=== PATIENT | male | born 1975 | race Two or more races ===

== ENCOUNTER 2018-09-26 19:53 | Emergency (ER) | payer SELFPAY ==
[~2018-09-26] VITALS: Ht 180.3 cm; Wt 113.4 kg
[2018-09-26 20:27] VITALS: BP 177/113
--- NOTE | 2018-09-26 20:27 | NUR ---
ED Nurse Note: Chest pain, palipitations, SOB, and cough since yesterday. AO4. NAD. HR 114. EKG completed. IV access established. Blood drawn and sent down to lab.
[2018-09-26 20:41] LABS: BASOPHILS % (AUTO) 1.2 % (0.0-2.0); EOSINOPHILS % (AUTO) 3.4 % (0.0-3.0); HEMATOCRIT 43.3 % (42.0-52.0); HEMOGLOBIN 13.8 G/DL (14.2-18.0); LYMPHOCYTES % (AUTO) 24.4 % (20.0-45.0); MEAN CORPUSCULAR VOLUME 92 FL (80-99); MONOCYTES % (AUTO) 4.9 % (1.0-10.0); NEUTROPHILS % (AUTO) 66.1 % (45.0-75.0); PLATELET COUNT 314 K/UL (150-450); RED BLOOD COUNT 4.72 M/UL (4.70-6.10); WHITE BLOOD COUNT 10.8 K/UL (4.8-10.8)
[2018-09-26 20:54] LABS: ANION GAP 7 mmol/L (5-15); BLOOD UREA NITROGEN 21 mg/dL (7-18); CALCIUM 9.5 MG/DL (8.5-10.1); CARBON DIOXIDE 29 MMOL/L (21-32); CHLORIDE 102 MMOL/L (98-107); CREATININE 1.1 MG/DL (0.55-1.30); POTASSIUM 4.6 MMOL/L (3.5-5.1); SODIUM 138 MMOL/L (136-145)
[2018-09-26 21:07] LABS: ALANINE AMINOTRANSFERASE 49 U/L (12-78); ALBUMIN 3.5 G/DL (3.4-5.0); ALBUMIN/GLOBULIN RATIO 0.8 (1.0-2.7); ALKALINE PHOSPHATASE 103 U/L (46-116); ASPARTATE AMINO TRANSFERASE 28 U/L (15-37); BILIRUBIN,TOTAL 0.4 MG/DL (0.2-1.0); CKMB 2.1 NG/ML (0.0-3.6); CREATINE KINASE 258 U/L (26-308)
--- NOTE | 2018-09-26 21:16 | Emergency Room Report ---
History of Present Illness General Chief Complaint: Chest Pain Source: Patient Present Illness HPI This patient complains of cough and shortness of breath for the past 5 days. The patient does continue to smoke tobacco. Patient states in the past he has had to get breathing treatments. He also has subjective fever and chills. He states that he has chest pain when he coughs. He states he also has bodyaches all over his body. He has no other complaints. Allergies: Coded Allergies: No Known Allergies (Unverified , 09/26/18) Patient History Past Medical History: see triage record Social History: Reports: smoking; Denies: alcohol use, drug use Reviewed Nursing Documentation: PMH: Agreed; PSxH: Agreed Nursing Documentation-PMH Past Medical History: No Stated History Review of Systems All Other Systems: negative except mentioned in HPI Physical Exam Vital Signs Date Time Temp Pulse Resp B/P (MAP) Pulse Ox O2 Delivery O2 Flow Rate FiO2 09/26/18 20:08 98.6 115 18 177/113 100 Room Air Sp02 EP Interpretation: reviewed, normal General Appearance: no apparent distress, alert, GCS 15, non-toxic Head: normocephalic, atraumatic Eyes: bilateral eye normal inspection, bilateral eye PERRL ENT: hearing grossly normal, normal pharynx, no angioedema, normal voice Neck: full range of motion, supple/symm/no masses Respiratory: chest non-tender, lungs clear, normal breath sounds, no respiratory distress, no retraction, no accessory muscle use, speaking full sentences Cardiovascular #1: regular rate, rhythm, no edema Gastrointestinal: normal bowel sounds, non tender, soft, non-distended, no guarding, no rebound Rectal: deferred Musculoskeletal: back normal, gait/station normal, normal range of motion, non- tender Neurologic: alert, oriented x3, responsive, motor strength/tone normal, sensory intact, speech normal Psychiatric: judgement/insight normal, memory normal, mood/affect normal, no suicidal/homicidal ideation Skin: normal color, no rash, warm/dry, well hydrated Medical Decision Making Diagnostic Impression: Primary Impression: Pneumonia ER Course This patient has a clinical presentation consistent with pneumonia and bronchospasm. Patient has a history of wheezing. The patient was given albuterol and Atrovent nebulizer treatments. The patient was also given prednisone orally. The patient had significant improvement in subjective shortness of breath. I recommended that this patient stay in the hospital for further monitoring. The patient significantly tachycardic. However, this is likely secondary to the albuterol treatment and anxiety. The patient's heart rate was in the 110s. The patient states that he will return if his symptoms worsen. I will also treat the patient with a course of antibiotics and an albuterol inhaler. The patient was given close return precautions and followup instructions. Laboratory Tests Test 09/26/18 20:15 White Blood Count 10.8 K/UL (4.8-10.8) Red Blood Count 4.72 M/UL (4.70-6.10) Hemoglobin 13.8 G/DL (14.2-18.0) L Hematocrit 43.3 % (42.0-52.0) Mean Corpuscular Volume 92 FL (80-99) Mean Corpuscular Hemoglobin 29.3 PG (27.0-31.0) Mean Corpuscular Hemoglobin Concent 31.9 G/DL (32.0-36.0) L Red Cell Distribution Width 14.0 % (11.6-14.8) Platelet Count 314 K/UL (150-450) Mean Platelet Volume 6.3 FL (6.5-10.1) L Neutrophils (%) (Auto) 66.1 % (45.0-75.0) Lymphocytes (%) (Auto) 24.4 % (20.0-45.0) Monocytes (%) (Auto) 4.9 % (1.0-10.0) Eosinophils (%) (Auto) 3.4 % (0.0-3.0) H Basophils (%) (Auto) 1.2 % (0.0-2.0) Sodium Level 138 MMOL/L (136-145) Potassium Level 4.6 MMOL/L (3.5-5.1) Chloride Level 102 MMOL/L (98-107) Carbon Dioxide Level 29 MMOL/L (21-32) Anion Gap 7 mmol/L (5-15) Blood Urea Nitrogen 21 mg/dL (7-18) H Creatinine 1.1 MG/DL (0.55-1.30) Estimate Glomerular Filtration Rate > 60 mL/min (>60) Glucose Level 93 MG/DL (74-106) Calcium Level 9.5 MG/DL (8.5-10.1) Total Bilirubin 0.4 MG/DL (0.2-1.0) Aspartate Amino Transferase (AST) 28 U/L (15-37) Alanine Aminotransferase (ALT) 49 U/L (12-78) Alkaline Phosphatase 103 U/L (46-116) Total Creatine Kinase 258 U/L (26-308) Creatine Kinase MB 2.1 NG/ML (0.0-3.6) Creatine Kinase MB Relative Index 0.8 Troponin I 0.011 ng/mL (0.000-0.056) Total Protein 7.9 G/DL (6.4-8.2) Albumin 3.5 G/DL (3.4-5.0) Globulin 4.4 g/dL Albumin/Globulin Ratio 0.8 (1.0-2.7) L EKG Diagnostic Results Rate: tachycardiac Rhythm: other - S.tachycardia ST Segments: no acute changes Rhythm Strip Diag. Results EP Interpretation: yes Rate: 110's Rhythm: no PVC's, no ectopy, other - S.tachycardia Chest X-Ray Diagnostic Results Chest X-Ray Diagnostic Results : Chest X-Ray Ordered: Yes # of Views/Limited/Complete: 1 View Indication: Shortness of Breath EP Interpretation: Yes Interpretation: no effusion, no pneumothorax, other - RLL opacity Impression: Other - RLL opacity, likely PNA. Electronically Signed by: Rachael Ortega DO Last Vital Signs Date Time Temp Pulse Resp B/P (MAP) Pulse Ox O2 Delivery O2 Flow Rate FiO2 09/26/18 20:27 98.6 113 18 177/113 100 Room Air Status: improved Disposition: HOME, SELF-CARE Condition: Improved Referrals: NOT CHOSEN IPA/,REFERRING (PCP) Rachael Ortega DO Sep 26, 2018 21:16
[2018-09-26] MEDS ORDERED: Albuterol ud Inhalation HHN ONE ×2 (21:45→22:15)
[2018-09-26] MEDS ORDERED: cefTRIAXone 1 GM in NS 55 ML IVPB ONE (21:45)
[2018-09-26] MEDS ORDERED: Ipratropium 0.02% Inh Soln 2.5ml UD HHN ONE (21:45)
[2018-09-26] MEDS ORDERED: Ketorolac 30mg Inj IV ONE (21:45)
[2018-09-26] MEDS ORDERED: ZITHROMAX250 MG ORAL (22:21)
[2018-09-26] MEDS ORDERED: GUAIFENESIN-CO118 M1 ORAL (22:21)
[2018-09-26] MEDS ORDERED: ALBUTEROL SULF8.5 GM INH (22:21)
[2018-09-26] MEDS ORDERED: PREDNISONE20 MG ORAL (22:21)
[2018-09-26 22:35] VITALS: BP 145/99
--- NOTE | 2018-09-26 22:35 | NUR ---
ED Nurse Note: Patient cleared cleared for discharge per ERMD. AO4. NAD. VSS. Accompanied by family member. Patient given prescriptions and discharge instructions; verbalized understanding. IV and ID removed. Patient ambulated steady out of ED with all belongings.
[2018-09-26 23:08] LABS: APPEARANCE,URINE CLEAR; BILIRUBIN, URINE NEGATIVE (NEGATIVE); GLUCOSE, URINE (UA) NEGATIVE (NEGATIVE); KETONES,URINE NEGATIVE (NEGATIVE); LEUKOCYTE ESTERASE ,URINE NEGATIVE (NEGATIVE); NITRITE,URINE NEGATIVE (NEGATIVE); PH,URINE 5 (4.5-8.0); PROTEIN,URINE 2+ (NEGATIVE); UROBILINOGEN,URINE NORMAL MG/DL (0.0-1.0)
[2018-09-26 23:10] LABS: COLOR,URINE YELLOW
--- NOTE | 2018-09-27 10:58 | Diagnostic Imaging Report ---
Indication: Dyspnea Comparison: None A single view chest radiograph was obtained. Findings: Cardiomediastinal appearance is within normal limits for age. The lungs are clear. Pulmonary vascularity is appropriate. The diaphragmatic contour is smooth and costophrenic angles are sharp. No pleural effusions are identified. The bones are unremarkable. Impression: No acute findings
--- NOTE | 2018-09-27 17:26 | Cardiology Report ---
APPROVED REPORT EKG Measurement Heart [id number] Sin[address] and T wave abnormality Abnormal ECG
== END 2018-09-26 22:35 | disposition home or self-care (01) ==
LOC: EMR 20:22
DX: J18.9 Pneumonia, unspecified organism (principal)
CPT/HCPCS: 36415; 71045; 80053; 80307; 81003; 82550; 82553; 84484; 85025; 86710; 93005; 94640; 96361; 96365; 96375; 99284; J0696; J1885; J7512

== ENCOUNTER 2018-10-01 18:18 | Emergency (ER) | payer SELFPAY ==
[~2018-10-01] VITALS: Ht 180.3 cm; Wt 117.9 kg
[~2018-10-01 18:18] MED LIST: ALBUTEROL SULF8.5 GM INH; GUAIFENESIN-CO118 M1 ORAL; PREDNISONE20 MG ORAL; ZITHROMAX250 MG ORAL
--- NOTE | 2018-10-01 18:33 | NUR ---
ED Nurse Note: Pt came into the ER w/ complaints of left lung pain. Rating the pain a 7/10. Non radiating. Pt was here on the 22 of September and was diagnosed with PNA. Given prednisone. A + O x4. Ambulatory. Skin warm to touch.
[2018-10-01 18:41] VITALS: BP 151/93
[2018-10-01] MEDS ORDERED: Ipratropium 0.02% Inh Soln 2.5ml UD HHN ONE (18:45)
[2018-10-01] MEDS ORDERED: Albuterol ud Inhalation HHN ONE (18:45)
--- NOTE | 2018-10-01 18:52 | NUR ---
ED Nurse Note: Xray and RT at the bedside.
--- NOTE | 2018-10-01 18:53 | Emergency Room Report ---
History of Present Illness General Chief Complaint: Dyspnea/Respdistress Source: Patient Present Illness HPI Patient 43-year-old male presented after increased chest discomfort. Patient recently been seen in the emergency department was diagnosed with pneumonia. He was given prescription for azithromycin which she states is completed the course. Patient reports having some sharp left-sided chest pain after prolonged coughing episode. Patient was noted to have previous urine drug screen for opiates and benzodiazepines. Allergies: Coded Allergies: No Known Allergies (Unverified , 09/26/18) Patient History Past Medical History: see triage record Reviewed Nursing Documentation: PMH: Agreed; PSxH: Agreed Nursing Documentation-PM Past Medical History: No History, Except For Hx Hypertension: Yes Review of Systems All Other Systems: negative except mentioned in HPI Physical Exam Vital Signs Date Time Temp Pulse Resp B/P (MAP) Pulse Ox O2 Delivery O2 Flow Rate FiO2 10/01/18 18:27 98.1 99 24 167/111 94 Room Air 10/01/18 18:41 100 Sp02 EP Interpretation: reviewed, normal General Appearance: normal inspection, well appearing, no apparent distress, alert, GCS 15 Head: atraumatic ENT: normal ENT inspection, hearing grossly normal, normal voice Neck: normal inspection, full range of motion, supple, no bony tend Respiratory: normal inspection, lungs clear, normal breath sounds, no respiratory distress, no retraction, no wheezing Cardiovascular #1: regular rate, rhythm, no edema Gastrointestinal: normal inspection, normal bowel sounds, non tender, soft, no guarding, no hernia Genitourinary: no CVA tenderness Musculoskeletal: normal inspection, back normal, normal range of motion Neurologic: normal inspection, alert, oriented x3, responsive, journalism intern III-XII nml as tested, motor strength/tone normal, speech normal Psychiatric: normal inspection, judgement/insight normal, mood/affect normal Skin: normal inspection, normal color, no rash Medical Decision Making Diagnostic Impression: Primary Impression: Chronic bronchitis ER Course . Patient presented for chest discomfort and shortness of breath.. Differential diagnosis include was not limited to myocardial infarction, substance withdrawal, pneumonia, rib fracture among others. Because of complexity of patient's case laboratory testing and imaging studies were ordered. EKG interpreted by me showed sinus tachycardia with a rate of [address] changes. Patient states that he felt a pop in the left side of his chest after coughing.I did review the patient's cures report. Patient was noted to have some concerning history for possible myocardial ischemia. Patient was offered admission for cardiac workup but patient declined. Patient was given prescription for inhaled steroids. He was additionally given prescription for diuretic for blood pressure management. Patient stated that he did not want to remain in the hospital. Chest x-ray read by radiology showed no evidence of pneumonia. Patient was advised smoking cessation. Patient was advised to return to the hospital if he began having any worsening shortness of breath worsening chest pain or changes mind regarding admission. Labs Test 10/01/18 18:40 10/01/18 19:50 White Blood Count 15.2 K/UL (4.8-10.8) Red Blood Count 4.31 M/UL (4.70-6.10) Hemoglobin 13.0 G/DL (14.2-18.0) Hematocrit 39.3 % (42.0-52.0) Mean Corpuscular Volume 91 FL (80-99) Mean Corpuscular Hemoglobin 30.1 PG (27.0-31.0) Mean Corpuscular Hemoglobin Concent 32.9 G/DL (32.0-36.0) Red Cell Distribution Width 14.0 % (11.6-14.8) Platelet Count 354 K/UL (150-450) Mean Platelet Volume 6.5 FL (6.5-10.1) Neutrophils (%) (Auto) 82.6 % (45.0-75.0) Lymphocytes (%) (Auto) 10.1 % (20.0-45.0) Monocytes (%) (Auto) 6.1 % (1.0-10.0) Eosinophils (%) (Auto) 0.7 % (0.0-3.0) Basophils (%) (Auto) 0.6 % (0.0-2.0) Sodium Level 140 MMOL/L (136-145) Potassium Level 3.7 MMOL/L (3.5-5.1) Chloride Level 103 MMOL/L (98-107) Carbon Dioxide Level 30 MMOL/L (21-32) Anion Gap 7 mmol/L (5-15) Blood Urea Nitrogen 23 mg/dL (7-18) Creatinine 1.1 MG/DL (0.55-1.30) Estimat Glomerular Filtration Rate > 60 mL/min (>60) Glucose Level 108 MG/DL (74-106) Calcium Level 9.7 MG/DL (8.5-10.1) Total Bilirubin 0.4 MG/DL (0.2-1.0) Aspartate Amino Transf (AST/SGOT) 20 U/L (15-37) Alanine Aminotransferase (ALT/SGPT) 70 U/L (12-78) Alkaline Phosphatase 96 U/L (46-116) Total Creatine Kinase 105 U/L (26-308) Creatine Kinase MB 2.0 NG/ML (0.0-3.6) Creatine Kinase MB Relative Index 1.9 Troponin I 0.000 ng/mL (0.000-0.056) Pro-B-Type Natriuretic Peptide 757 pg/mL (0-125) Total Protein 7.4 G/DL (6.4-8.2) Albumin 3.4 G/DL (3.4-5.0) Globulin 4.0 g/dL Albumin/Globulin Ratio 0.9 (1.0-2.7) Lipase 90 U/L (73-393) Urine Color Yellow Urine Appearance Clear Urine pH 6 (4.5-8.0) Urine Specific [place] 1.020 (1.005-1.035) Urine Protein 2+ (NEGATIVE) Urine Glucose (UA) Negative (NEGATIVE) Urine Ketones Negative (NEGATIVE) Urine Blood 2+ (NEGATIVE) Urine Nitrite Negative (NEGATIVE) Urine Bilirubin Negative (NEGATIVE) Urine Urobilinogen Normal MG/DL (0.0-1.0) Urine Leukocyte Esterase 1+ (NEGATIVE) Urine RBC 5-10 /HPF (0 - 0) Urine WBC 2-4 /HPF (0 - 0) Urine Squamous Epithelial Cells None /LPF (NONE/OCC) Urine Bacteria Few /HPF (NONE) EKG Diagnostic Results Rate: normal Rhythm: NSR ST Segments: other - lateral st flattening Last Vital Signs Date Time Temp Pulse Resp B/P (MAP) Pulse Ox O2 Delivery O2 Flow Rate FiO2 10/01/18 18:41 97 14 Room Air 100 10/01/18 18:41 98.1 151/93 100 Status: improved Disposition: HOME, SELF-CARE Condition: Stable Scripts Hydrochlorothiazide* (HYDROCHLOROTHIAZIDE*) 25 Mg Tablet 25 MG ORAL DAILY, #30 TAB Prov: Mayank Boggs MD 10/01/18 Aspirin* (ASPIR 81*) 81 Mg Tablet. 81 MG ORAL DAILY, #30 TAB Prov: Mayank Boggs MD 10/01/18 Beclomethasone Dipropionate 40MCG Oral Inh (QVAR 40*) 7.3 Gm Aer.w.adap 1 PUFF INH TWICE A DAY, #7.3 GM 0 Refills Prov: Mayank Boggs MD 10/01/18 Mayank Boggs MD Oct 01, 2018 18:53
--- NOTE | 2018-10-01 19:10 | NUR ---
HAND-OFF: Report given to MICK Wright.
--- NOTE | 2018-10-01 19:11 | NUR ---
ED Nurse Note: Received report from Stefan/MICK. Pt is A/O X 4. VSS. Will continue to monitor.
[2018-10-01 19:19] LABS: BASOPHILS % (AUTO) 0.6 % (0.0-2.0); EOSINOPHILS % (AUTO) 0.7 % (0.0-3.0); HEMATOCRIT 39.3 % (42.0-52.0); LYMPHOCYTES % (AUTO) 10.1 % (20.0-45.0); MEAN CORPUSCULAR VOLUME 91 FL (80-99); MONOCYTES % (AUTO) 6.1 % (1.0-10.0); NEUTROPHILS % (AUTO) 82.6 % (45.0-75.0); PLATELET COUNT 354 K/UL (150-450); RED BLOOD COUNT 4.31 M/UL (4.70-6.10); WHITE BLOOD COUNT 15.2 K/UL (4.8-10.8)
[2018-10-01] MEDS ORDERED: Albuterol/Ipratropium 3ml neb HHN ONE (19:30)
[2018-10-01] MEDS ORDERED: Ketorolac 30mg Inj IV ONE (19:30)
[2018-10-01 19:39] LABS: ANION GAP 7 mmol/L (5-15); BLOOD UREA NITROGEN 23 mg/dL (7-18); CALCIUM 9.7 MG/DL (8.5-10.1); CARBON DIOXIDE 30 MMOL/L (21-32); CHLORIDE 103 MMOL/L (98-107); CREATININE 1.1 MG/DL (0.55-1.30); POTASSIUM 3.7 MMOL/L (3.5-5.1); SODIUM 140 MMOL/L (136-145)
[2018-10-01 19:54] LABS: ALANINE AMINOTRANSFERASE 70 U/L (12-78); ALBUMIN 3.4 G/DL (3.4-5.0); ALBUMIN/GLOBULIN RATIO 0.9 (1.0-2.7); ALKALINE PHOSPHATASE 96 U/L (46-116); ASPARTATE AMINO TRANSFERASE 20 U/L (15-37); BILIRUBIN,TOTAL 0.4 MG/DL (0.2-1.0); CREATINE KINASE 105 U/L (26-308)
--- NOTE | 2018-10-01 19:54 | NUR ---
ED Nurse Note: Urine sample collected and sent to Lab.
[2018-10-01 20:32] LABS: APPEARANCE,URINE CLEAR; BILIRUBIN, URINE NEGATIVE (NEGATIVE); GLUCOSE, URINE (UA) NEGATIVE (NEGATIVE); KETONES,URINE NEGATIVE (NEGATIVE); LEUKOCYTE ESTERASE ,URINE 1+ (NEGATIVE); NITRITE,URINE NEGATIVE (NEGATIVE); PH,URINE 6 (4.5-8.0); PROTEIN,URINE 2+ (NEGATIVE); UROBILINOGEN,URINE NORMAL MG/DL (0.0-1.0)
[2018-10-01 20:33] LABS: COLOR,URINE YELLOW
[2018-10-01] MEDS ORDERED: HYDROCHLOROTHIA25 MG ORAL (20:33)
[2018-10-01] MEDS ORDERED: ASPIR 8181 MG ORAL (20:33)
[2018-10-01] MEDS ORDERED: QVAR7.3 GM INH (20:33)
[2018-10-01] MEDS ORDERED: Ketorolac 30mg Inj ONE (20:37)
[2018-10-01 20:42] VITALS: BP 154/91
--- NOTE | 2018-10-01 20:42 | NUR ---
ER DISCHARGE NOTE: Patient is cleared to be discharged per Dr. Boggs. Pt is aox4, on room air O2 Sat 96 %, Breathing treatment given by RT. Pain meds given as ordered. Vital signs is stable . Pt was given dc and prescription instructions, pt was able to verbalize understanding, pt id band and iv site removed without complications. Pt is able to ambulate with steady gait. pt took all belongings. Accompanied by his son.
--- NOTE | 2018-10-02 12:00 | Diagnostic Imaging Report ---
Indication: Shortness of breath Technique: One view of the chest Comparison: 09/26/2018 Findings: The heart is mildly enlarged. No definite infiltrates, effusions, or congestion. No significant interim change Impression: Mild cardiomegaly. No acute process
--- NOTE | 2018-10-04 01:28 | Cardiology Report ---
APPROVED REPORT EKG Measurement Heart [id number] Normal sinus rhythm Possible Left atrial enlargement Septal infarct, age undetermined Abnormal ECG
== END 2018-10-01 20:42 | disposition home or self-care (01) ==
LOC: EMR 19:03
DX: J42 Unspecified chronic bronchitis (principal); I10 Essential (primary) hypertension
CPT/HCPCS: 36415; 71045; 80053; 80307; 81003; 82550; 82553; 83690; 83880; 84484; 85025; 93005; 94640; 94664; 96374; 99284; J1885; J7040; J7620